=== PATIENT | male | born 1975 ===

== ENCOUNTER 2017-08-02 14:35 | Emergency (ER) | payer MEDICAID ==
[2017-08-02 14:54] VITALS: BMI 27.8
[2017-08-02 14:57] VITALS: RESP 18
[2017-08-02 15:34] LABS: EOS % 0.8 % (0.0-4.0); HEMOGLOBIN 14.5 g/dL (12.0-18.0); LYMPH # 1.2 K/uL (1.0-4.3); LYMPH % 22.9 % (20.0-40.0); MEAN CELL VOLUME 87.3 fL (80.0-94.0); MEAN CORPUSCULAR HEMOGLOBIN 29.7 pg (27.0-31.0); MONO # 0.4 K/uL (0.0-0.8); MONO % 8.5 % (0.0-10.0); NEUT # 3.5 K/uL (1.8-7.0); NEUT % 66.8 % (50.0-75.0); RBC 4.9 Mil/uL (4.40-5.90); RED CELL DISTRIBUTION WIDTH 14.3 % (11.5-14.5); WHITE BLOOD COUNT 5.2 K/uL (4.8-10.8)
[2017-08-02 16:23] LABS: ALB/GLOB RATIO 1.3 (1.0-2.1); ALBUMIN 4.2 g/dL (3.5-5.0); ALT/SGPT 41 U/L (21-72); AST/SGOT 39 U/L (17-59); BLOOD UREA NITROGEN 14 mg/dL (9-20); GFR AFRICAN-AMERICAN > 60; GFR NON-AFRICAN AMERICAN > 60
[2017-08-02] MEDS ORDERED: Iodixanol 320 MG/ML 100 ML BOTTLE IV ONE (17:06)
--- NOTE | 2017-08-02 18:02 | C.PDOC ---
History Of Present Illness 42 year old male, whose PMHx includes Pulmonary Embolism, is referred to the ED from clinic for evaluation of left shoulder and chest pain which began today. Patient states pain is sharp in nature. Patient also admits to doing heavy exercises yesterday. He is currently on Xeralta and states he has been compliant with the medication. He denies fever, chills, cough, and shortness of breath. Chief Complaint (Nursing): Chest Pain History Per: Patient History/Exam Limitations: no limitations Onset/Duration Of Symptoms: Hrs Current Symptoms Are (Timing): Still Present Quality: Sharp, "Pain" Additional History Per: Patient Past Medical History Reviewed: Historical Data, Nursing Documentation, Vital Signs Vital Signs: Last Vital Signs Temp 98.2 F 08/02/17 18:18 Pulse 74 08/02/17 18:18 Resp 18 08/02/17 18:18 BP 121/76 08/02/17 18:18 Pulse Ox 99 08/02/17 18:18 - Medical History PMH: Deep Vein Thrombosis (LEFT), Pulmonary Embolism (LEFT) Surgical History: No Surg Hx Family History: States: Unknown Family Hx - Social History Hx Alcohol Use: No (DENIED) Hx Substance Use: No (DENIED) - Immunization History Hx Tetanus Toxoid Vaccination: No Hx Influenza Vaccination: No Hx Pneumococcal Vaccination: No Review Of Systems Constitutional: Negative for: Fever, Chills Cardiovascular: Positive for: Chest Pain Respiratory: Negative for: Cough, Shortness of Breath Musculoskeletal: Positive for: Shoulder Pain (left ) Physical Exam - Physical Exam Appears: Non-toxic, No Acute Distress Skin: Normal Color, Warm, Dry Head: Atraumatic, Normacephalic Eye(s): bilateral: Normal Inspection Oral Mucosa: Moist Neck: Normal ROM, Supple Chest: Symmetrical, No Deformity, No Tenderness Cardiovascular: Rhythm Regular, No Murmur Respiratory: Normal Breath Sounds, No Rales, No Rhonchi, No Wheezing Back: Other (point tenderness to lateral trapezius muscle on palpation ) Extremity: Normal ROM, Capillary Refill (less than 2 seconds ) Neurological/Psych: Oriented x3, Normal Speech, Normal Cognition ED Course And Treatment - Laboratory Results Result Diagrams: 08/02/17 15:26 08/02/17 16:05 ECG: Interpreted By Me, Viewed By Me ECG Rhythm: Sinus Rhythm Interpretation Of ECG: Normal Sinus Rhythm at rate 75bpm. Normal axis and rhythm. Rate From EC O2 Sat by Pulse Oximetry: 98 (on RA) Pulse Ox Interpretation: Normal Medical Decision Making Medical Decision Making: Impression: 42 year old male with left shoulder pain and chest pain Plan: * bloodwork * CT Angio Chest * EKG * Toradol IVP * reassess and disposition Progress: Bloodwork, CT Angio Chest, EKG ordered and reviewed. Toradol IVP administered. Disposition - Disposition Referrals: [facility] [Outside] [facility] [Outside] Disposition: HOME/ ROUTINE Disposition Time: 18:10 Condition: GOOD Additional Instructions: Thank you for letting us take care of you today. The emergency medical care you received today was directed at your acute symptoms. If you were prescribed any medication, please fill it and take as directed. It may take several days for your symptoms to resolve. Return to the Emergency Department if your symptoms worsen, do not improve, or if you have any other problems. Please contact your doctor or call one of the physicians/clinics you have been referred to that are listed on the Patient Visit Information form that is included in your discharge packet. Bring any paperwork you were given at discharge with you along with any medications you are taking to your follow up visit. Our treatment cannot replace ongoing medical care by a primary care provider (PCP) outside of the emergency department. Thank you for allowing the [email or web address] team to be part of your care today. Continue taking the Xeralta as prescribed. Follow up with the clinic in 3-4 days for re-evaluation and further management. Instructions: Chest Pain That Is Not Caused by the Heart (DC) Forms: [employer] (South Korean) - Clinical Impression Clinical Impression: Non-cardiac chest pain - Scribe Statement The provider has reviewed the documentation as recorded by the Scribe (Hilda Burns) Provider Attestation: All medical record entries made by the Scribe were at my direction and personally dictated by me. I have reviewed the chart and agree that the record accurately reflects my personal performance of the history, physical exam, medical decision making, and the department course for this patient. I have also personally directed, reviewed, and agree with the discharge instructions and disposition.
--- NOTE | 2017-08-02 18:14 | CT ---
PROCEDURE: CT Chest with contrast (Pulmonary Angiogram) HISTORY: Chest pain. Rule out PE. COMPARISON: Comparison made with CTA chest dated 07/07/2017. TECHNIQUE: Axial computed tomography images were obtained of the chest in the pulmonary arterial phase of enhancement. Coronal and sagittal reformatted images were created and reviewed. Intravenous contrast dose: 100 cc Visipaque 320 Radiation dose: Total exam DLP = 674.84 mGy-cm. This CT exam was performed using one or more of the following dose reduction techniques: Automated exposure control, adjustment of the mA and/or kV according to patient size, and/or use of iterative reconstruction technique. FINDINGS: PULMONARY ARTERIES: Previously noted suspected fixed band and/or web within the proximal aspect right lower lobe pulmonary arterial branch which extends distally into the proximal margins of the 2 segmental lower lobe branches unchanged. . Note this may represent chronic scarring due to remote episodes of pulmonary emboli. Clinical correlation recommended. There is no evidence to suggest acute pulmonary emboli. Pulmonary trunk measures approximately 2.5 cm. AORTA: No acute findings. No thoracic aortic aneurysm. Ascending thoracic aorta measures approximately 2.8 cm and descending thoracic aorta measures approximately 2.1 cm. LUNGS: Unremarkable. No nodule, mass or pulmonary consolidation. PLEURAL SPACES: Unremarkable. No effusion or pneumothorax. HEART: Heart size within range of normal. No significant pericardial effusion. LYMPH NODES: Small bilateral hilar lymph nodes. No significant mediastinal adenopathy There is a tiny hiatal hernia. . BONES, CHEST WALL: Stable appearing anterior superior endplate deformity involving the T11 segment unchanged. Minor multilevel degenerative spondylosis of the thoracic spine. OTHER FINDINGS: Spleen is upper limits of normal in size. IMPRESSION: Previously noted suspected fixed band and/or web within the proximal aspect right lower lobe pulmonary arterial branch which extends distally into the proximal margins of the 2 segmental lower lobe branches unchanged. . Note this may represent chronic scarring due to remote episodes of pulmonary emboli. Clinical correlation recommended. There is no evidence to suggest acute pulmonary emboli
[2017-08-02 18:18] VITALS: BP 121/76; PULSE 74; TEMP 98.2
[2017-08-02 18:31] VITALS: O2SAT 98
== END 2017-08-02 18:29 | disposition home or self-care (01) ==
LOC: C.ER 14:35
DX: R07.89 Other chest pain (principal)
CPT/HCPCS: 71275; 80053; 84484; 85025; 96374; 99284; J1885; Q9967

== ENCOUNTER 2017-08-12 07:40 | Emergency (ER) | payer MEDICAID ==
[2017-08-12 07:40] VITALS: BMI 29.3
[2017-08-12 07:49] VITALS: BP 119/65; PULSE 87; RESP 20; TEMP 97.7; O2SAT 98
--- NOTE | 2017-08-12 08:44 | C.PDOC ---
History Of Present Illness 42 yo male with PMH DVT and PE (complaint with Xarelto) came into the ER for refill of pepcid. Pt notes he has a h/o gastritis, "I get gas, it feels better with the pepcid." Pt was noted to have 3 refills on rx bottle from [facility]. Pt notes that the pharmacy is in [place]. Also c/o left side shoulder pain secondary to sleeping on the floor. He has been evaluated twice for the same pain, most recently last week and treated with motrin. Notes that "muscle relaxers work the best." Admits to working out and lifting heavy. No trauma. No chest pain, sob, change in sensation, neck pain, or fever. Denies abdominal pain , n/v, or diarrhea. Normal BM today. Time Seen by Provider: 08/12/17 08:25 Chief Complaint (Nursing): Med Refill History Per: Patient History/Exam Limitations: no limitations Onset/Duration Of Symptoms: Days Current Symptoms Are (Timing): Still Present Past Medical History Reviewed: Historical Data, Nursing Documentation, Vital Signs Vital Signs: Last Vital Signs Temp 97.7 F 08/12/17 07:46 Pulse 87 08/12/17 07:46 Resp 20 08/12/17 07:46 BP 119/65 08/12/17 07:46 Pulse Ox 98 08/12/17 11:12 - Medical History PMH: Deep Vein Thrombosis, Pulmonary Embolism Surgical History: No Surg Hx Family History: States: No Known Family Hx - Social History Hx Alcohol Use: No Hx Substance Use: No - Immunization History Hx Tetanus Toxoid Vaccination: No Hx Influenza Vaccination: No Hx Pneumococcal Vaccination: No Review Of Systems Except As Marked, All Systems Reviewed And Found Negative. Constitutional: Negative for: Fever, Chills Respiratory: Negative for: Shortness of Breath Gastrointestinal: Negative for: Nausea, Vomiting, Diarrhea Skin: Negative for: Rash Physical Exam - Physical Exam Appears: Well, Non-toxic, No Acute Distress Skin: Normal Color, Warm, Dry Head: Atraumatic, Normacephalic Eye(s): bilateral: Normal Inspection, EOMI Nose: Normal Neck: Normal ROM, Supple, Other ((+) left trapezius tenderness, reproducible ) Chest: Symmetrical Cardiovascular: Rhythm Regular Respiratory: Normal Breath Sounds Gastrointestinal/Abdominal: Normal Exam, Soft, No Tenderness Back: Normal Inspection Extremity: Normal ROM Neurological/Psych: Oriented x3, Normal Speech ED Course And Treatment O2 Sat by Pulse Oximetry: 98 (ra) Pulse Ox Interpretation: Normal Progress Note: Pts history was evaluated. Pt had negative CTA x 2 on 08/02 and . Pt has no new symtpoms. No chest pain or sob. Pt was evalauted on 08/02 and he states he had "the same symtpoms". No new symtpoms. Not tachycardic. Pulse ox 98%. Pt states that "I just want the prescriptions" , no further work up. Notes he has an appt with the clinic on 08/25. Instructed to return to ER if symtpoms persist or worsen. Disposition - Disposition Referrals: [facility] [Outside] Disposition: HOME/ ROUTINE Disposition Time: 08:41 Condition: STABLE Additional Instructions: Follow up with the clinic in 1-2 days. Return to ER if symptoms persist or worsen. Prescriptions: Acetaminophen [Tylenol 325mg tab] 650 mg PO Q4 PRN #20 tab PRN Reason: Pain, Mild (1-3) Famotidine [Pepcid] 20 mg PO DAILY #14 tab Instructions: Gastritis Forms: [employer] (Tamazight) - Clinical Impression Clinical Impression: Muscle strain, Gastritis - PA / LENS GAUGER / Resident Statement MD/DO has reviewed & agrees with the documentation as recorded. - Scribe Statement The provider has reviewed the documentation as recorded by the Anton Washington All medical record entries made by the Freddyibbarber were at my direction and personally dictated by me. I have reviewed the chart and agree that the record accurately reflects my personal performance of the history, physical exam, medical decision making, and the department course for this patient. I have also personally directed, reviewed, and agree with the discharge instructions and disposition.
== END 2017-08-12 09:04 | disposition home or self-care (01) ==
LOC: C.ER 07:40
DX: K29.70 Gastritis, unspecified, without bleeding (principal); S46.912A Strain of unspecified muscle, fascia and tendon at shoulder and upper arm level, left arm, initial encounter; X50.0XXA Overexertion from strenuous movement or load, initial encounter; Y92.9 Unspecified place or not applicable

== ENCOUNTER 2017-12-30 15:18 | Emergency (ER) | payer MEDICAID, OTHER ==
[2017-12-30 15:18] VITALS: BMI 29.2
--- NOTE | 2017-12-30 15:50 | C.PDOC ---
History Of Present Illness 42 y/o male with PMHx of pulmonary embolism and DVT (no longer on xarelto), presents to the ED complaining of left shoulder pain for a while. Has been carrying heavy bags for school. Denies any trauma but states he sleeps on the floor. Patient reports having similar symptoms in the past. Otherwise he denies any chest pain, SOB, change in sensation, or focal weakness. Time Seen by Provider: 12/30/17 15:29 Chief Complaint (Nursing): Upper Extremity Problem/Injury History Per: Patient History/Exam Limitations: no limitations Onset/Duration Of Symptoms: Days Current Symptoms Are (Timing): Still Present Past Medical History Reviewed: Historical Data, Nursing Documentation, Vital Signs Vital Signs: Last Vital Signs Temp 97.5 F L 12/30/17 15:57 Pulse 65 12/30/17 15:57 Resp 18 12/30/17 15:57 BP 128/81 12/30/17 15:57 Pulse Ox 100 12/30/17 15:57 - Medical History PMH: Deep Vein Thrombosis, GERD, Pulmonary Embolism Surgical History: No Surg Hx Family History: States: Unknown Family Hx - Social History Hx Tobacco Use: No (former) Hx Alcohol Use: No Hx Substance Use: No - Immunization History Hx Tetanus Toxoid Vaccination: No Hx Influenza Vaccination: No Hx Pneumococcal Vaccination: No Review Of Systems Except As Marked, All Systems Reviewed And Found Negative. Constitutional: Negative for: Fever Eyes: Negative for: Vision Change Cardiovascular: Negative for: Chest Pain, Palpitations Respiratory: Negative for: Shortness of Breath Musculoskeletal: Positive for: Shoulder Pain (left) Neurological: Negative for: Weakness, Numbness, Incoordination Physical Exam - Physical Exam Appears: Non-toxic, No Acute Distress Skin: Normal Color, Warm, Dry Head: Atraumatic, Normacephalic Eye(s): bilateral: Normal Inspection Oral Mucosa: Moist Neck: Supple Chest: Symmetrical Cardiovascular: Rhythm Regular, No Murmur Respiratory: Normal Breath Sounds, No Rales, No Rhonchi, No Wheezing Extremity: Tenderness (to left shoulder), No Deformity, No Swelling, Other ( Painful ROM of left shoulder) Pulses: Left Radial: Normal, Right Radial: Normal Neurological/Psych: Oriented x3, Normal Speech, Normal Motor, Normal Sensation Medical Decision Making Medical Decision Making: Plan: --Toradol 30 mg IM Patient is declining x-ray at this time. Reports improvement after treatment. Patient is stable for discharge home. Advised to return to the ER for any worsening or persistent symptoms. Disposition - Disposition Referrals: [facility] [place] [Outside] [facility] [Outside] [facility] [Outside] Disposition: HOME/ ROUTINE Disposition Time: 15:47 Condition: STABLE Additional Instructions: please follow up with your doctor/clinic. return to er with worsening symptoms or concerns. Prescriptions: Naproxen [Naprosyn] 500 mg PO BID PRN #14 tab PRN Reason: Pain, Mild (1-3) Instructions: Shoulder Sprain Forms: [employer] (Fijian) - Clinical Impression Clinical Impression: Shoulder sprain - Scribe Statement The provider has reviewed the documentation as recorded by the Anton Waldron Provider Attestation: All medical record entries made by the Anton were at my direction and personally dictated by me. I have reviewed the chart and agree that the record accurately reflects my personal performance of the history, physical exam, medical decision making, and the department course for this patient. I have also personally directed, reviewed, and agree with the discharge instructions and disposition.
[2017-12-30 15:57] VITALS: BP 128/81; PULSE 65; RESP 18; TEMP 97.5; O2SAT 100
== END 2017-12-30 16:05 | disposition home or self-care (01) ==
LOC: C.ER 15:18
DX: S43.402A Unspecified sprain of left shoulder joint, initial encounter (principal); X58.XXXA Exposure to other specified factors, initial encounter
CPT/HCPCS: 96372; 99284; J1885

== ENCOUNTER 2018-01-10 15:26 | Emergency (ER) | payer MEDICAID, OTHER ==
[2018-01-10 15:49] VITALS: BMI 25.1
[2018-01-10 15:52] VITALS: BP 128/82; PULSE 83; RESP 18; TEMP 98.2; O2SAT 99
--- NOTE | 2018-01-10 16:46 | C.PDOC ---
History Of Present Illness 43yo male, comes to ER reporting left anterior chest wall pain and left trapezius discomfort x 1 month. Patient reports he was seen for the same complaints prior, and was prescribed with naproxen but he lost it so he has been taking Tylenol. Patient states he is taking 2 tabs of Tylenol per day with minimal relief. Otherwise, no shortness of breath, vomiting, weakness. Time Seen by Provider: 01/10/18 16:19 Chief Complaint (Nursing): Medical Clearance History Per: Patient History/Exam Limitations: no limitations Onset/Duration Of Symptoms: Persistent Current Symptoms Are (Timing): Still Present Past Medical History Reviewed: Historical Data, Nursing Documentation, Vital Signs Vital Signs: Last Vital Signs Temp 98.2 F 01/10/18 15:49 Pulse 83 01/10/18 15:49 Resp 18 01/10/18 15:49 BP 128/82 01/10/18 15:49 Pulse Ox 99 01/10/18 16:46 - Medical History PMH: Deep Vein Thrombosis (left leg), GERD, Pulmonary Embolism Surgical History: No Surg Hx Family History: States: Unknown Family Hx - Social History Hx Tobacco Use: No (former) Hx Alcohol Use: No Hx Substance Use: No - Immunization History Hx Tetanus Toxoid Vaccination: No Hx Influenza Vaccination: No Hx Pneumococcal Vaccination: No Review Of Systems Except As Marked, All Systems Reviewed And Found Negative. Constitutional: Negative for: Fever, Chills Cardiovascular: Positive for: Chest Pain Respiratory: Negative for: Shortness of Breath Gastrointestinal: Negative for: Vomiting Musculoskeletal: Positive for: Back Pain Physical Exam - Physical Exam Appears: Non-toxic, No Acute Distress Skin: Normal Color, Warm, Dry Head: Atraumatic, Normacephalic Eye(s): bilateral: Normal Inspection Neck: Normal ROM, Supple Chest: Symmetrical, Tenderness (left anterior chest wall, midclavicular line t3- t4) Cardiovascular: Rhythm Regular Respiratory: Normal Breath Sounds Gastrointestinal/Abdominal: Normal Exam Back: Other (left trapezius tenderness) Extremity: Normal ROM Neurological/Psych: Oriented x3 ED Course And Treatment ECG: Interpreted By Me, Viewed By Me ECG Rhythm: Sinus Rhythm Rate From EC O2 Sat by Pulse Oximetry: 99 (RA) Pulse Ox Interpretation: Normal Medical Decision Making Medical Decision Making: costochondritis as prior dx 12/25 non-complaint with NSAIDS chest wall and trapezius discomfort digitally reproducable, normal EKG Disposition Doctor Will See Patient In The: Office Counseled Patient/Family Regarding: Studies Performed, Diagnosis - Disposition Referrals: [facility] [Outside] [facility] [place] [Outside] [facility] [Outside] [facility] [Outside] Disposition: HOME/ ROUTINE Disposition Time: 16:46 Condition: GOOD Additional Instructions: ice packs to the L chest wall/trapezius 1/2 hour per hour, nothihg hot no hot showers Motrin 600 mg every 6 hours as needed Naproxyn 500 every 12 hours as needed These medications can be acquired WITHOUT prescriptions. follow-up in our outpatient Clinic as needed. Instructions: Costochondritis Forms: [employer] (Ukrainian) - Clinical Impression Clinical Impression: Chest wall discomfort - Scribe Statement The provider has reviewed the documentation as recorded by the Anton Rose Provider Attestation: All medical record entries made by the Anton were at my direction and personally dictated by me. I have reviewed the chart and agree that the record accurately reflects my personal performance of the history, physical exam, medical decision making, and the department course for this patient. I have also personally directed, reviewed, and agree with the discharge instructions and disposition.
--- NOTE | 2018-01-11 18:23 | CARD ---
APPROVED REPORT Date of service: 01/10/2018 EKG Measurement Heart [id number] <Conclusion> Normal sinus rhythm Normal ECG
== END 2018-01-10 16:58 | disposition home or self-care (01) ==
LOC: C.ER 15:26
DX: R07.89 Other chest pain (principal); K21.9 Gastro-esophageal reflux disease without esophagitis; Z86.711 Personal history of pulmonary embolism; Z86.718 Personal history of other venous thrombosis and embolism

== ENCOUNTER 2018-02-26 10:33 | Emergency (ER) | payer MEDICAID, OTHER ==
[2018-02-26 10:33] VITALS: BMI 25.1
[2018-02-26 10:48] VITALS: RESP 18
--- NOTE | 2018-02-26 11:50 | C.PDOC ---
History Of Present Illness 43 year old male presents to ED complaining of pain to right wrist since last night. Patient reports while unloading furniture he fell off of the truck and landed on his right arm. Patient states he heard the bones cracking and came to the ER to make sure " nothing was broken." Denies fever, chill, hitting head on fall, weakness, numbness. - HPI Time Seen by Provider: 02/26/18 10:55 Chief Complaint (Nursing): Trauma History Per: Patient History/Exam Limitations: no limitations Onset/Duration Of Symptoms: Hrs Past Medical History Reviewed: Historical Data, Nursing Documentation, Vital Signs Vital Signs: Last Vital Signs Temp 97.8 F 02/26/18 10:45 Pulse 90 02/26/18 10:45 Resp 18 02/26/18 10:45 BP 117/77 02/26/18 10:45 Pulse Ox 97 02/26/18 10:45 - Medical History PMH: Deep Vein Thrombosis (left leg), GERD, Pulmonary Embolism Surgical History: No Surg Hx Family History: States: No Known Family Hx - Social History Hx Tobacco Use: No (former) Hx Alcohol Use: No Hx Substance Use: No - Immunization History Hx Tetanus Toxoid Vaccination: No Hx Influenza Vaccination: No Hx Pneumococcal Vaccination: No Review Of Systems Except As Marked, All Systems Reviewed And Found Negative. Constitutional: Negative for: Fever, Chills Musculoskeletal: Positive for: Arm Pain (Right wrist) Neurological: Negative for: Weakness, Numbness Physical Exam - Physical Exam Appears: Non-toxic, No Acute Distress Skin: Warm, Dry Head: Atraumatic, Normacephalic Eye(s): bilateral: PERRL, EOMI Chest: Symmetrical, No Deformity Cardiovascular: Rhythm Regular, No Murmur Respiratory: Normal Breath Sounds, No Rales, No Rhonchi, No Wheezing Extremity: Normal ROM, Tenderness (To volar right wrist.) Neurological/Psych: Oriented x3 ED Course And Treatment O2 Sat by Pulse Oximetry: 97 (RA) Pulse Ox Interpretation: Normal - Other Rad X-ray right wrist X-Ray: Interpreted by Me, Viewed By Me Interpretation: FINDINGS: BONES: Normal. No fracture. Note made of what may represent small bone island or osteoma within the lunate bone. JOINTS: Normal. No dislocation. SOFT TISSUES: Normal. OTHER FINDINGS: None. IMPRESSION: Normal right wrist radiographs. Medical Decision Making Medical Decision Making: Plan: * X-ray right wrist Velcro wrist splint was applied by audiovisual technician for support and checked by me,. Disposition - Disposition Referrals: Derek Quiles MD [Staff Provider] - Disposition: HOME/ ROUTINE Disposition Time: 11:48 Condition: GOOD Additional Instructions: Follow up with the Hand surgeon within 1-2 days. Return if worsened. Prescriptions: Ibuprofen [Motrin] 600 mg PO TID #21 tab Instructions: Wrist Sprain (DC) Forms: [employer] (Upper Sorbian), Work Excuse - Clinical Impression Clinical Impression: Wrist sprain - PA / CHILD PROTECTIVE SERVICES SPECIALIST / Resident Statement MD/DO has reviewed & agrees with the documentation as recorded. - Scribe Statement The provider has reviewed the documentation as recorded by the Scribe Jarad Curiel All medical record entries made by the Scribe were at my direction and personally dictated by me. I have reviewed the chart and agree that the record accurately reflects my personal performance of the history, physical exam, medical decision making, and the department course for this patient. I have also personally directed, reviewed, and agree with the discharge instructions and d isposition.
[2018-02-26 12:02] VITALS: BP 112/72; PULSE 86; TEMP 98
[2018-02-26 12:15] VITALS: O2SAT 97
--- NOTE | 2018-02-26 14:52 | RAD ---
Date of service: 02/26/2018 PROCEDURE: Right Wrist Radiographs. HISTORY: wrist injury COMPARISON: None. FINDINGS: BONES: Normal. No fracture. Note made of what may represent small bone island or osteoma within the lunate bone JOINTS: Normal. No dislocation. SOFT TISSUES: Normal. OTHER FINDINGS: None. IMPRESSION: Normal right wrist radiographs.
== END 2018-02-26 12:03 | disposition home or self-care (01) ==
LOC: C.ER 10:33
DX: S63.501A Unspecified sprain of right wrist, initial encounter (principal); W17.89XA Other fall from one level to another, initial encounter

== ENCOUNTER 2018-05-02 09:26 | Emergency (ER) | payer MEDICAID, OTHER ==
[2018-05-02 09:27] VITALS: BMI 25.1
[2018-05-02 10:39] LABS: BASO % 0.9 % (0.0-2.0); EOS % 0.2 % (0.0-4.0); HEMOGLOBIN 15.3 g/dL (12.0-18.0); LYMPH # 1.2 K/uL (1.0-4.3); LYMPH % 21.4 % (20.0-40.0); MEAN CELL VOLUME 87.3 fL (80.0-94.0); MEAN CORPUSCULAR HEMOGLOBIN 29.7 pg (27.0-31.0); MEAN PLATELET VOLUME 8.2 fL (7.2-11.7); MONO # 0.4 K/uL (0.0-0.8); MONO % 6.7 % (0.0-10.0); NEUT # 3.9 K/uL (1.8-7.0); NEUT % 70.8 % (50.0-75.0); NRBC % 0.1 % (0.0-2.0); RBC 5.16 Mil/uL (4.40-5.90); RED CELL DISTRIBUTION WIDTH 14.4 % (11.5-14.5); WHITE BLOOD COUNT 5.5 K/uL (4.8-10.8)
[2018-05-02 10:50] LABS: INR 1.1; PROTHROMBIN TIME 11.5 SECONDS (9.7-12.2)
[2018-05-02 11:03] LABS: ALB/GLOB RATIO 1.6 (1.0-2.1); ALBUMIN 4.9 g/dL (3.5-5.0); ALT/SGPT 33 U/L (21-72); AST/SGOT 32 U/L (17-59); BLOOD UREA NITROGEN 14 mg/dL (9-20); CALCIUM 9.6 mg/dl (8.6-10.4); GFR NON-AFRICAN AMERICAN > 60
--- NOTE | 2018-05-02 11:04 | C.PDOC ---
History Of Present Illness Patient is a 43 year old male, with a PMHx of PE and DVT (diagnosed in 2016), presenting to the ED complaining of intermittent SOB and intermittent left sided chest and arm pain for the past 2 months. Patient states he was previously on Coumadin and most recently on Xarelto, which he was instructed to stop taking in October 2017. He denies any cough, fever, chills, abdominal pain, palpitations, nausea, vomiting, headache, or dizziness. Time Seen by Provider: 05/02/18 10:12 Chief Complaint (Nursing): Shortness Of Breath History Per: Patient History/Exam Limitations: no limitations Onset/Duration Of Symptoms: Days (2 months ), Intermittent Episodes Current Symptoms Are (Timing): Still Present Quality: "Pain" (left sided chest and arm pain ) Associated Symptoms: denies: Fever, Chills, Dizziness Recent travel outside of the [place]: No Additional History Per: Patient Past Medical History Reviewed: Historical Data, Nursing Documentation, Vital Signs Vital Signs: Last Vital Signs Temp 98.3 F 05/02/18 09:40 Pulse 85 05/02/18 09:40 Resp 20 05/02/18 09:40 BP 123/68 05/02/18 09:40 Pulse Ox 99 05/02/18 09:40 - Medical History PMH: Deep Vein Thrombosis (left leg), GERD, Pulmonary Embolism Surgical History: No Surg Hx Family History: States: Unknown Family Hx - Social History Hx Tobacco Use: No (former) Hx Alcohol Use: No Hx Substance Use: No - Immunization History Hx Tetanus Toxoid Vaccination: No Hx Influenza Vaccination: No Hx Pneumococcal Vaccination: No Review Of Systems Constitutional: Negative for: Fever, Chills Cardiovascular: Negative for: Palpitations Respiratory: Negative for: Cough Gastrointestinal: Negative for: Nausea, Vomiting, Abdominal Pain Neurological: Negative for: Headache, Dizziness Physical Exam - Physical Exam Appears: Well, No Acute Distress Skin: Normal Color, Warm, Dry Head: Atraumatic, Normacephalic Oral Mucosa: Moist Neck: Normal ROM, Supple Chest: Symmetrical, No Deformity Cardiovascular: Rhythm Regular, No Murmur Respiratory: Normal Breath Sounds, No Rales, No Rhonchi, No Wheezing Gastrointestinal/Abdominal: Soft, No Tenderness, No Guarding, No Rebound Extremity: Normal ROM, No Pedal Edema, No Calf Tenderness, No Other (left upper extremity edema ) Neurological/Psych: Oriented x3, Normal Speech, Normal Cognition ED Course And Treatment - Laboratory Results Result Diagrams: 05/02/18 10:32 05/02/18 10:32 Lab Results: PT 11.5 SECONDS (9.7-12.2) 05/02/18 10:32 INR 1.1 05/02/18 10:32 APTT 30 SECONDS (21-34) 05/02/18 10:32 ECG: Interpreted By Me, Viewed By Me ECG Rhythm: Sinus Rhythm ECG Interpretation: Normal Interpretation Of ECG: Normal axis, no acute ST/T wave changes Rate From EC O2 Sat by Pulse Oximetry: 99 (on RA) Pulse Ox Interpretation: Normal - CT Scan/US CT Chest Other Rad Studies (CT/US): Read By Radiologist, Radiology Report Reviewed CT/US Interpretation: Findings: Limited visualized portions of the inferior thyroid gland appear grossly unremarkable. The mediastinal and hilar vascular structures appear within normal limits. The heart appears within normal limits of size. No large central or segmental pulmonary embolus evident. Re- identified suspected fixed band and/or web involving the proximal aspect of the right lower lobe pulmonary artery branch extending distally into the segmental branches. Considerations include chronic scarring due to remote episodes of pulmonary emboli. No focal consolidation. No pleural effusion. No pneumothorax. No suspicious pulmonary nodules measuring greater than 5 mm. Limited visualized portions of the upper abdomen appear grossly unremarkable. Degenerative changes. Stable appearing anterior superior endplate deformity involving T11. Impression: No large central or segmental pulmonary embolus evident. Re- identified suspected fixed band and/or web involving the proximal aspect of the right lower lobe pulmonary artery branch extending distally into the segmental branches. Considerations include chronic scarring due to remote episodes of pulmonary emboli. Progress Note: CAT Chest, EKG, Bloodwork, Vascular Lab were ordered and reviewed. Disposition Counseled Patient/Family Regarding: Studies Performed, Diagnosis, Need For Followup, Rx Given - Disposition Referrals: [facility] [Outside] Disposition: HOME/ ROUTINE Disposition Time: 13:30 Condition: STABLE Additional Instructions: FOLLOW UP IN THE MEDICAL CLINIC IN 1-2 DAYS USE MEDICATIONS NEEDED RETURN TO ER IF YOUR SYMPTOMS WORSEN Prescriptions: Cyclobenzaprine [Flexeril] 10 mg PO BID PRN #15 tab PRN Reason: Muscle Spasm Naproxen 375 mg PO BID PRN #20 tablet PRN Reason: pain Instructions: Radiculopathy (DC) Forms: [facility] (Ugandan) Print Language: DANISH - POA Present On Arrival: None - Clinical Impression Clinical Impression: Left arm pain, Cervical radiculopathy - Scribe Statement The provider has reviewed the documentation as recorded by the Anton Whipple All medical record entries made by the Freddyibbarber were at my direction and personally dictated by me. I have reviewed the chart and agree that the record accurately reflects my personal performance of the history, physical exam, medical decision making, and the department course for this patient. I have also personally directed, reviewed, and agree with the discharge instructions and disposition.
[2018-05-02 11:14] LABS: CK-MB 2.03 ng/mL (0.0-3.38)
[2018-05-02] MEDS ORDERED: Iodixanol 320 MG/ML 100 ML BOTTLE IV ONE (11:45)
[2018-05-02 12:52] VITALS: RESP 16
--- NOTE | 2018-05-02 13:04 | CT ---
Date of service: 05/02/2018 CTA chest PE protocol Indication: CHEST PAIN, SOB, H/O PE/DVT Technique: Contiguous axial images were obtained through the chest with intravenous contrast enhancement. Sagittal and coronal reconstructions were generated and reviewed. This CT exam was performed using 1 or more of the following dose reduction techniques: Automated exposure control, adjustment of the MAA and/or kV according to patient size, and/or use of iterative reconstruction technique. IV contrast: 100 cc Visipaque 320 IV Radiation dose (DLP): 577.8 MGy-cm. Comparison: CTA chest performed 08/02/17 Findings: Limited visualized portions of the inferior thyroid gland appear grossly unremarkable. The mediastinal and hilar vascular structures appear within normal limits. The heart appears within normal limits of size. No large central or segmental pulmonary embolus evident. Re-identified suspected fixed band and/or web involving the proximal aspect of the right lower lobe pulmonary artery branch extending distally into the segmental branches. Considerations include chronic scarring due to remote episodes of pulmonary emboli. No focal consolidation. No pleural effusion. No pneumothorax. No suspicious pulmonary nodules measuring greater than 5 mm. Limited visualized portions of the upper abdomen appear grossly unremarkable. Degenerative changes. Stable appearing anterior superior endplate deformity involving T11 Impression: No large central or segmental pulmonary embolus evident. Re-identified suspected fixed band and/or web involving the proximal aspect of the right lower lobe pulmonary artery branch extending distally into the segmental branches. Considerations include chronic scarring due to remote episodes of pulmonary emboli.
[2018-05-02 13:16] VITALS: O2SAT 99
--- NOTE | 2018-05-02 13:39 | VASCLAB ---
Date of service: 05/02/2018 PROCEDURE: Left Upper Extremity Venous Duplex Exam HISTORY: LUE PAIN, R/O DVT PRIORS: None. TECHNIQUE: Left upper extremity, internal jugular, subclavian, axillary, brachial, ulnar, radial, basilic and upper cephalic veins were evaluated. Flow was assessed with color Doppler, compressibility, assessment of phasic flow and augmentation response. Report prepared by JAZMÍN Vinson FINDINGS: LEFT: 1. Internal Jugular: 1.1. Compressibility - Fully compressible: Thrombus - None : Flow - Phasic: Augmentation -Normal: Reflux - None. 2. Subclavian: 2.1. Compressibility - Fully compressible: Thrombus - None : Flow - Phasic: Augmentation -Normal: Reflux - None. 3. Axillary: 3.1. Compressibility - Fully compressible: Thrombus - None : Flow - Phasic: Augmentation -Normal: Reflux - None. 4. Brachial: 4.1. Compressibility - Fully compressible: Thrombus - None: Flow - Phasic: Augmentation -Normal: Reflux - None. 5. Ulnar: 5.1. Compressibility - Fully compressible: Thrombus - None: Flow - Phasic: Augmentation -Normal: Reflux - None. 6. Radial: 6.1. Compressibility - Fully compressible: Thrombus - None: Flow - Phasic: Augmentation - Normal: Reflux - None. 7. Cephalic: 7.1. Compressibility - Fully compressible: Thrombus - None: Flow - Phasic: Augmentation -Normal: Reflux - None. 8. Basilic: 8.1. Compressibility - Fully compressible: Thrombus - None: Flow - Phasic: Augmentation -Normal: Reflux - None. OTHER FINDINGS: Normal venous flow noted in the RIGHT internal jugular and right subclavian veins. IMPRESSION: Left: No evidence of vein thrombosis of the left upper extremity with excellent venous flow. Normal valve function noted of the left side.
[2018-05-02 13:45] VITALS: BP 115/72; PULSE 76; TEMP 98.2
--- NOTE | 2018-05-04 05:56 | CARD ---
APPROVED REPORT Date of service: 05/02/2018 EKG Measurement Heart [id number] <Conclusion> Normal sinus rhythm Normal ECG
== END 2018-05-02 13:44 | disposition home or self-care (01) ==
LOC: C.ER 09:26
DX: M54.12 Radiculopathy, cervical region (principal); M79.602 Pain in left arm
CPT/HCPCS: 71275; 80053; 82550; 82553; 84484; 85025; 85610; 85730; 93005; 93971; 99284; Q9967

== ENCOUNTER 2018-07-06 14:15 | Emergency (ER) | payer MEDICAID, OTHER ==
[2018-07-06 14:15] VITALS: BMI 25.1
[2018-07-06 14:43] VITALS: BP 112/75; PULSE 84; RESP 18; TEMP 97.5; O2SAT 99
--- NOTE | 2018-07-06 16:15 | C.PDOC ---
History Of Present Illness 43 y/o male presents to the ER complaining of "crackling" sensation in bilateral legs. Patient states that his legs are becoming "fragile." Patient denies having pain, falls, and injuries. Of note, I tried to examine patient and took the sock off his right leg. However, he stated that I am leaving. Patient declined further evaluation and treatment. Time Seen by Provider: 07/06/18 15:26 Chief Complaint (Nursing): Lower Extremity Problem/Injury Past Medical History Vital Signs: Last Vital Signs Temp 97.5 F L 07/06/18 14:40 Pulse 84 07/06/18 14:40 Resp 18 07/06/18 14:40 BP 112/75 07/06/18 14:40 Pulse Ox 99 07/06/18 14:40 - Medical History PMH: Depression, Deep Vein Thrombosis (left leg), GERD, Pulmonary Embolism Family History: States: Unknown Family Hx - Social History Hx Tobacco Use: No (former) Hx Alcohol Use: No Hx Substance Use: No - Immunization History Hx Tetanus Toxoid Vaccination: No Hx Influenza Vaccination: No Hx Pneumococcal Vaccination: No ED Course And Treatment O2 Sat by Pulse Oximetry: 99 Disposition - Disposition Disposition: LEFT W/O BEING SEEN - ER ONLY Disposition Time: 16:30 Condition: STABLE Forms: [employer] [facility] (Pakistani) - Clinical Impression Clinical Impression: Patient left before evaluation by physician - Scribe Statement The provider has reviewed the documentation as recorded by the Freddyibe Michelle Bartlett Provider Attestation: All medical record entries made by the Scribe were at my direction and personally dictated by me. I have reviewed the chart and agree that the record accurately reflects my personal performance of the history, physical exam, medical decision making, and the department course for this patient. I have also personally directed, reviewed, and agree with the discharge instructions and disposition.
== END 2018-07-06 15:26 | disposition left against medical advice (07) ==
LOC: C.ER 14:15
DX: Z02.89 Encounter for other administrative examinations (principal); Z00.00 Encounter for general adult medical examination without abnormal findings